=== PATIENT | male | born 1990 | race African-American/Black ===

== ENCOUNTER 2020-07-19 23:34 | Emergency (ER) | payer MEDICAID ==
[~2020-07-19] VITALS: Ht 182.9 cm; Wt 77.1 kg
[2020-07-19] MEDS ORDERED: SINGULAIR 10 MG10 M1 PO (23:51)
[2020-07-19] MEDS ORDERED: LAMICTAL 25 MG25 MG PO (23:53)
[2020-07-20 02:30] VITALS: BP 118/70
== END 2020-07-20 02:30 | disposition home or self-care (01) ==
LOC: M.ERS 23:34
DX: S01.112A Laceration without foreign body of left eyelid and periocular area, initial encounter (principal); Z79.899 Other long term (current) drug therapy; W18.2XXA Fall in (into) shower or empty bathtub, initial encounter; Y93.89 Activity, other specified; Y92.091 Bathroom in other non-institutional residence as the place of occurrence of the external cause; Y99.8 Other external cause status